=== PATIENT | male | born 1970 | race African-American/Black ===

== ENCOUNTER 2017-02-15 07:45 | Emergency (ER) | payer MEDICAID ==
[~2017-02-15] VITALS: Ht 182.9 cm; Wt 122.5 kg
[2017-02-15 07:53] VITALS: BP 116/85
--- NOTE | 2017-02-15 08:00 | NUR ---
PT AMBULATED TO ER BED 07
--- NOTE | 2017-02-15 08:01 | NUR ---
Patient ambulated to bed 7.
--- NOTE | 2017-02-15 08:06 | NUR ---
46/M presents to ED for evaluation of cough, fever on and off along with lower back pain. Pt states "I just have a little pain in my lower back and in my hands I don't know what that's from." Pt states "My job wants me to get cleared." Afebrile. Skin warm and dry, normal in color for ethnicity. Lungs clear bilaterally. Respirations even and unlabored. Abdomen soft, non tender, active bowel sounds x4 quadrants. Denies N/V/D. AOX4, clear speech. Calm and relaxed, no visible signs of distress.
--- NOTE | 2017-02-15 08:45 | NUR ---
Influenza nasal swab collected, pt tolerated well and sent to lab for analysis.
[2017-02-15 09:21] VITALS: BP 124/87
--- NOTE | 2017-02-15 09:31 | NUR ---
Patient discharged with v/s stable. Written and verbal after care instructions given and explained. Patient alert, oriented and verbalized understanding of instructions. Ambulatory with steady gait. All questions addressed prior to discharge. ID band removed. Patient advised to follow up with PMD. Rx of PHENERGN W CODEINE given. Patient educated on indication of medication including possible reaction and side effects. Opportunity to ask questions provided and answered.
== END 2017-02-15 09:31 | disposition home or self-care (01) ==
LOC: MED 07:45
DX: M54.5 Low back pain (principal); B34.9 Viral infection, unspecified
CPT/HCPCS: 36415; 87804; 99284